=== PATIENT | female | born 2000 | race Caucasian/White ===

== ENCOUNTER 2018-02-26 15:48 | Emergency (ER) | payer MEDICARE, OTHER ==
[~2018-02-26] VITALS: Ht 154.9 cm; Wt 41.7 kg
[2018-02-26 15:54] VITALS: BP 109/57
[2018-02-26] MEDS ORDERED: NACL 0.9% 1,000 ML IV ONE (16:15)
[2018-02-26] MEDS ORDERED: ONDANSETRON 4 MG/2 ML VIAL IVP ONE (16:15)
[2018-02-26 17:40] VITALS: BP 104/65
== END 2018-02-26 17:35 | disposition home or self-care (01) ==
LOC: MED 15:48
DX: O99.511 Diseases of the respiratory system complicating pregnancy, first trimester (principal); O21.9 Vomiting of pregnancy, unspecified; Z3A.09 9 weeks gestation of pregnancy
CPT/HCPCS: 96361; 96374; 99284; J2405; J7030

== ENCOUNTER 2018-08-09 18:52 | Inpatient (IN) | payer OTHER ==
[~2018-08-09] VITALS: Ht 154.9 cm; Wt 46.3 kg
[2018-08-09] MEDS ORDERED: PREN-546 PO (19:18)
[2018-08-09] MEDS ORDERED: TERBUTALINE 1 MG/ML VIAL SUBQ SCH (20:05)
[2018-08-09] MEDS ORDERED: TERBUTALINE 1 MG/ML VIAL SUBQ ONE (20:09)
== END 2018-08-10 00:10 | disposition home or self-care (01) | DRG 566 ==
LOC: MLD 18:52
PROVIDERS: ADMIT Obstetrics & Gynecology; ATTEND Obstetrics & Gynecology
DX: O46.92 Antepartum hemorrhage, unspecified, second trimester (principal); Z3A.27 27 weeks gestation of pregnancy
CPT/HCPCS: 76805; 81000; 96372; J3105; Q0092